=== PATIENT | female | born 2000 | race Caucasian/White ===

== ENCOUNTER → 2025-01-08 08:13 | Outpatient (REF) | payer OTHER, SELFPAY | LOC: DHSLP 08:13 | PROVIDERS: ATTENDING PHYSICIAN Internal Medicine Critical Care Medicine | DX: G47.19 Other hypersomnia (principal); R06.83 Snoring | CPT/HCPCS: 95800 ==

== ENCOUNTER 2025-03-02 06:29 | Day surgery (SDC) | payer OTHER, SELFPAY | END 2025-03-02 14:21 | disposition home or self-care (01) | LOC: GI 06:29 | PROVIDERS: ATTENDING PHYSICIAN Internal Medicine; FAMILY PHYSICIAN Physician Assistant | DX: K29.50 Unspecified chronic gastritis without bleeding (principal); D50.9 Iron deficiency anemia, unspecified; K90.0 Celiac disease; Z79.899 Other long term (current) drug therapy; K44.9 Diaphragmatic hernia without obstruction or gangrene | CPT/HCPCS: 45378; 43239; 88305; 88342 ==